=== PATIENT | female | born 1995 | race Caucasian/White ===

== ENCOUNTER 2021-08-10 15:22 | Inpatient (IN) | payer OTHER ==
[~2021-08-10] VITALS: Ht 154.9 cm; Wt 92.1 kg
[2021-08-10] MEDS ORDERED: BENADRYL25 MG PO (15:59)
[2021-08-10] MEDS ORDERED: TRANDATE 100 M100 MG PO (15:59)
[2021-08-10 16:33] LABS: HEMOGLOBIN 10.7 gm/dl (12.3-15.3); RED BLOOD COUNT 3.57 M/UL (4.00-5.10); WHITE BLOOD COUNT 12.1 K/UL (4.5-11.0)
[2021-08-12 06:18] LABS: HEMOGLOBIN 8.8 gm/dl (12.3-15.3)
[2021-08-12] MEDS ORDERED: COLACE 100MG C100 MG PO (11:59)
[2021-08-12] MEDS ORDERED: FERROCITE324 MG PO (11:59)
[2021-08-12] MEDS ORDERED: HYDROCODON-ACE1 EAC4 PO (11:59)
[2021-08-12] MEDS ORDERED: IBUPROFEN800 MG PO (11:59)
== END 2021-08-12 18:22 | disposition home or self-care (01) | DRG 806 ==
LOC: GENOP 15:22 → OB 16:14
PROVIDERS: Obstetrics & Gynecology; ADMIT Obstetrics & Gynecology
PROC: 4A1HXCZ Monitoring of Products of Conception, Cardiac Rate, External Approach (ICD-10-PCS; 2021-08-10)
PROC: 10E0XZZ Delivery of Products of Conception, External Approach (ICD-10-PCS; principal; 2021-08-11)
PROC: 10907ZC Drainage of Amniotic Fluid, Therapeutic from Products of Conception, Via Natural or Artificial Opening (ICD-10-PCS; 2021-08-11)
PROC: 3E033VJ Introduction of Other Hormone into Peripheral Vein, Percutaneous Approach (ICD-10-PCS; 2021-08-11)
DX: O10.92 Unspecified pre-existing hypertension complicating childbirth (principal); O99.12 Other diseases of the blood and blood-forming organs and certain disorders involving the immune mechanism complicating childbirth; Z37.0 Single live birth; D62 Acute posthemorrhagic anemia; D69.6 Thrombocytopenia, unspecified; Z3A.37 37 weeks gestation of pregnancy; O99.02 Anemia complicating childbirth; Z20.822 Contact with and (suspected) exposure to COVID-19; Z86.73 Personal history of transient ischemic attack (TIA), and cerebral infarction without residual deficits; Z88.1 Allergy status to other antibiotic agents; Z87.440 Personal history of urinary (tract) infections; Z82.49 Family history of ischemic heart disease and other diseases of the circulatory system; Z83.79 Family history of other diseases of the digestive system; Z83.3 Family history of diabetes mellitus
CPT/HCPCS: 36415; 81001; 82800; 85014; 85018; 85025; J2405; J2590